=== PATIENT | female | born 1945 | race African-American/Black ===

== ENCOUNTER 2018-03-17 09:07 | Day surgery (SDC) | END 2018-03-17 12:06 | disposition home or self-care (01) ==

== ENCOUNTER 2018-10-31 05:28 | Day surgery (SDC) | payer MEDICARE, OTHER ==
[2018-10-31] VITALS (7 sets, daily range): BP systolic 108–154; BP diastolic 68–86; PULSE 80–93; RESP 13–21; Ht 160 cm; Wt 53.3 kg
[~2018-10-31] VITALS: Ht 160 cm; Wt 53.3 kg
[~2018-10-31 05:28] MED LIST: ASPI1CPM8 PO; ATOR10TA65 PO; GABA100C14 PO; METO-429 PO; SEVE800T7 PO
[2018-10-31] MEDS ORDERED: THROMBIN 5000 UNIT VIAL ONE (06:31)
[2018-10-31] MEDS ORDERED: HEPARIN 1000 UNITS/ML 10 ML INJ ONE ×2 (06:31→09:55)
[2018-10-31] MEDS ORDERED: GELATIN SIZE 100 SPONGE ONE (06:31)
[2018-10-31] MEDS ORDERED: LIDOCAINE 1% (MPF) 30 ML INJ ONE (06:31)
--- NOTE | 2018-10-31 07:13 | HPN ---
Date/Time of Note Date/Time of Note DATE: 10/31/18 TIME: 07:12 Interval H&P Admission Note Pt. seen H&P reviewed: No system changes ISAK JOSHUA MD Oct 31, 2018 07:12
[2018-10-31] MEDS ORDERED: HEPARIN 1000 UNITS/ML 10 ML INJ IRR ONE (08:00)
[2018-10-31] MEDS ORDERED: LIDOCAINE 1% (MDV) 20 ML INJ INJ ONE (08:00)
--- NOTE | 2018-10-31 08:05 | PREAC ---
Date/Time of Note Date/Time of Note DATE: 10/31/18 TIME: 08:04 Anesthesia Eval and Record Evaluation Time Pre-Procedure Interview DATE: 10/31/18 TIME: 08:04 Age 73 Sex female NPO: 8 hrs Preoperative diagnosis av fistula creation for esrd Planned procedure av fistula creation Past Medical History Past Medical History: Includes Cardio: HTN Neuro: CVA Renal: ESRD on dialysis Surgery & Anesthesia Issues No known issue Meds Anticoagulation: No Beta Francis within 24 hr: Yes Reported Medications Sevelamer Carbonate* (Renvela*) 800 Mg Tablet, 0.8 GM PO WITH MEALS, TAB 03/17/18 Aspirin-Dipyridamole* (Aggrenox*) 25-200 Mg Cpmp.12hr, 1 CAP PO BID, CAP 03/17/18 Atorvastatin Calcium (Atorvastatin Calcium) 10 Mg Tablet, 10 MG PO QHS, #30 TAB 03/17/18 Gabapentin* (Gabapentin*) 100 Mg Capsule, 100 MG PO BID, #90 CAP 03/17/18 Metoprolol Tartrate* (Lopressor*) 50 Mg Tab, 50 MG PO BID, #60 TAB 03/17/18 Meds reviewed: Yes Allergies Coded Allergies: morphine (Verified Allergy, Unknown, RASH ITCHY, 03/17/18) Allergies Reviewed: Yes Labs/Studies Labs Reviewed: Reviewed by anesthesiologist Result Diagram: 10/31/1827 10/31/18 0626 Laboratory Tests 10/31/18 06:26 10/31/18 06:27 test: N/A Pre-procedure Exam Airway: Adequate mouth opening, Adequate thyromental dist Mallampati: Mallampati IV Teeth: Normal Lung: Normal Heart: Normal ASA Physical Status ASA physical status: 4 Emergency: None Pre-operative Attestations Prior to commencing anesthesia and surgery, the patient was re-evaluated, there was verification of: *The patient's identity *The results of appropriate recent lab work and preoperative vital signs *The above evaluation not changing prior to induction *Anesthetic plan, risk benefits, alternative and complications discussed with patient/family; questions answered; patient/family understands, accepts and wishes to proceed. REBECCA CAVAZOS DO Oct 31, 2018 08:05
[2018-10-31] MEDS ORDERED: LIDOCAINE 2% (SDV) 5 ML INJ ONE (08:07)
[2018-10-31] MEDS ORDERED: ROPIVACAINE 0.5 % 30 ML VIAL ONE (08:07)
[2018-10-31] MEDS ORDERED: CEFAZOLIN 1 GM INJ ONE (08:33)
[2018-10-31] MEDS ORDERED: METOPROLOL 5 MG INJ ONE (10:13)
--- NOTE | 2018-10-31 10:22 | SIPON ---
Date/Time of Note Date/Time of Note DATE: 10/31/18 TIME: 10:21 Operative Report Preoperative Diagnosis ESRD Postoperative Diagnosis same Operation/Procedure Performed creation right arm AV graft, right femoral permacath exchange Surgeon see signature line veterinary assistant none Anesthesia: general Estimated blood loss: 10 - 50 ml's Transfusion Required none Specimen none Grafts/Implants none Complications none ISAK JOSHUA MD Oct 31, 2018 10:22
--- NOTE | 2018-10-31 10:27 | NUR ---
RECEIVED FROM OR VIA [facility] S/P RT. AV FISTULA CREATION AND REPLACEMENT PERMACATH RT. GROIN. DRESSING TO RT. ARM DRY AND INTACT. PERMACATH DRESSING DRY AND INTACT. IV INFUSINGH IN LT. HAND # 22 ANGIOCATH. BRUIT AND THRILL PRESENT .
[2018-10-31] MEDS ORDERED: ONDANSETRON 4 MG INJ IV PRN (10:30)
[2018-10-31] MEDS ORDERED: FENTAnyl 50 MCG/ML VIAL IV PRN (10:30)
[2018-10-31] MEDS ORDERED: LABETALOL HCL 20MG INJ IV PRN (10:30)
[2018-10-31] MEDS ORDERED: hydrALAzine 20 MG INJ IV PRN (10:30)
--- NOTE | 2018-10-31 10:34 | PAC ---
Date/Time of Note Date/Time of Note DATE: 10/31/18 TIME: 10:25 Post-Anesthesia Notes Post-Anesthesia Note Last documented vital signs 120/65 100 100% 18 98 1034 Activity: WNL Respiratory function: WNL Cardiovascular function: WNL Mental status: Baseline Pain reasonably controlled: Yes Hydration appropriate: Yes Nausea/Vomiting absent: Yes REBECCA CAVAZOS DO Oct 31, 2018 10:34
--- NOTE | 2018-10-31 11:50 | NUR ---
RE: DISCHARGE PATIENT DISCHARGED HOME. ALL DISCHARGE INSTRUCTIONS EXPLAINED AND PROVIDED TO PATIENT AND FAMILY. IV REMOVED. SURGICAL SITE CLEAN AND DRY WITHOUT ANY COMPLICATIONS. PATIENT VERBALIZED READINESS FOR DISCHARGE AND UNDERSTANDING OF INSTRUCTIONS PROVIDED. STABLE TO LEAVE THE HOSPITAL.
--- NOTE | 2018-10-31 12:00 | NUR ---
REPORT GIVEN TO [facility] CALLED AND NOTIFIED RE- TRANSFER TO [facility]. TRANSPORTED TO [facility] AT 1112 HRS. IN STABLE CONDITION. DRESSING TO RT. ARM REMAINS DRY AND INTACT. PERMACATH TO RT. GROIN INTACT. DR. CAVAZOS IN TO FURTHER EXPLAIN RE- BLOCK DONE ON RT. ARM. BRUIT AND THRILL PRESENT. IV REMAIN PATENT.
--- NOTE | 2018-11-01 10:31 | OPR ---
DATE OF OPERATION: 10/31/2018 PREOPERATIVE DIAGNOSIS: End-stage renal disease. POSTOPERATIVE DIAGNOSIS: End-stage renal disease. PROCEDURE PERFORMED: Creation of right arm AV graft and exchange of right femoral Perm-A-Cath. SURGEON: Isak Carrizales MD ANESTHESIA: Regional block plus LMA. ESTIMATED BLOOD LOSS: 50 mL. COMPLICATIONS: There were no intraprocedural complications. INDICATIONS: This is a 73-year-old woman. She has had multiple arm accesses bilaterally. She has m ost recently a right upper arm basilic transposition that is now occluded. She has a right femoral P erm-A-Cath. She was brought in today for creation of a right upper arm AV graft. When I saw her thi s morning they also told me the femoral Perm-A-Cath clotted yesterday and they have not been able to use it, so I exchanged the femoral Perm-A-Cath as well. DESCRIPTION OF PROCEDURE: Patient was brought to the operating room and placed on the table in supin e position. After the block and anesthesia were induced, the right arm was prepped and draped in the usual sterile fashion. I had marked it on the skin. The brachial artery just above the elbow and t he axillary vein in the upper arm using ultrasound guidance. I then made an incision over both of th dennis areas longitudinally. She had a previous basilic transposition. There is a lot of scarring, but I was able to dissect out the brachial artery just above the elbow. It is a little bit small, but h ealthy and patent and then the axillary vein in the upper arm, I dissected down through the subcutane ous tissue using electrocautery, carefully dissected out the axillary vein and it from the axillary artery. I then used a Estrella-Wick tunneler to tunnel a 6 mm Artegraft between the 2 incision s in a curvilinear fashion going out up over the biceps. I then clamped the axillary vein proximally and distally, made about 1.5 cm long venotomy, spatulated the upper end of graft to fit the venotomy and then anastomosed the upper end of the graft to the side of the vein using 6-0 Prolene suture in a running standard vascular surgical fashion. I removed the clamps. I flushed the graft. It flushe d easily. There was no resistance. I then clamped the graft, then clamped the brachial artery proxi savanah and distally, made an 8 mm long anterior arteriotomy. I just cut the graft flush to fit the ar teriotomy, then anastomosed the lower end of the graft to the side of the brachial artery using 6-0 P rolene suture in a running standard vascular surgical fashion. I removed the clamps. There was a go od thrill. There was good hemostasis. I closed the skin incisions in 2 layers using an inner layer of 3-0 Vicryl and an outer layer of 4-0 Monocryl subcuticular suture. Sterile dressing was applied. I then prepped and draped the right groin. I re-draped after putting on some , I then exchange d the right femoral Perm-A-Cath. I placed a J-wire through the catheter after the groin was prepped and draped. I then removed the previous catheter over the wire. I then placed a 50 cm 5 cm femoral Perm-A-Cath over the wire under fluoroscopic guidance and identified the tip of the catheter in the r ight atrium. I was happy with the positioning. I then anchored the catheter to skin using heavy 3-0 nylon suture. I infused 3.1 mL of 1000 unit per mL heparin into each port of the catheter. Caps we re applied. Sterile dressing was applied. The patient was then transferred to the recovery room in stable condition, she tolerated the procedur e well without any complications. Dictated By: ISAK LINARES/MARIE Conf#: [id number] DID#: [id number]
--- NOTE | 2018-11-03 13:46 | RADRPT ---
Vent Rate: 83 bpm RR Interval: 0 msec AR Interval: 186 msec QRS Duration: 74 msec QT Interval: 398 msec QTC Interval: 467 msec P-R-T [place]: 54 - -28 - 87 degrees Normal sinus rhythm Minimal voltage criteria for LVH, may be normal variant Borderline ECG Electronically Signed By: Shen Garcia [id number]
== END 2018-10-31 17:19 | disposition home or self-care (01) ==
LOC: SDS 05:28
PROVIDERS: ATTEND Surgery Vascular Surgery
DX: I12.0 Hypertensive chronic kidney disease with stage 5 chronic kidney disease or end stage renal disease (principal); N18.6 End stage renal disease; Z86.73 Personal history of transient ischemic attack (TIA), and cerebral infarction without residual deficits
CPT/HCPCS: 36821; 71045; 74018; 80053; 85025; 85610; 85730; 93005; C1752; C1768; J0690; J1644; J2795

== ENCOUNTER 2018-12-01 08:08 | Day surgery (SDC) | payer MEDICARE, OTHER ==
[~2018-12-01] VITALS: Ht 160 cm; Wt 51.0 kg
[2018-12-01] MEDS ORDERED: GABA100C14 PO (09:02)
[2018-12-01] MEDS ORDERED: ATOR10TA65 PO (09:02)
[2018-12-01] MEDS ORDERED: METO-429 PO (09:03)
[2018-12-01] MEDS ORDERED: NEPH PO (09:03)
[2018-12-01] MEDS ORDERED: SEVE800T7 PO (09:04)
[2018-12-01 09:34] VITALS: Ht 160 cm; Wt 51.0 kg
[2018-12-01 09:44] VITALS: BP 132/58; PULSE 88; RESP 18
[2018-12-01] MEDS ORDERED: FENTAnyl 50 MCG/ML VIAL ONE (11:31)
[2018-12-01 12:27] VITALS: BP 134/67; PULSE 91; RESP 18
[2018-12-01] MEDS ORDERED: ACETAMINOPHEN 325 MG TAB PO ONE (14:30)
--- NOTE | 2018-12-01 16:05 | OPR ---
DATE OF OPERATION: 12/01/2018 PREOPERATIVE DIAGNOSIS: Right arm edema and arteriovenous fistula. POSTOPERATIVE DIAGNOSIS: Right arm edema and arteriovenous fistula. PROCEDURE PERFORMED: 1. Right arm arteriovenous fistulogram. 2. Percutaneous venoplasty of the venous anastomosis. 3. Percutaneous venoplasty of the right axillary vein. SURGEON: Isak Carrizales MD ANESTHESIA: Local with sedation. ESTIMATED BLOOD LOSS: Minimal. COMPLICATIONS: No intraprocedural complications. INDICATIONS: A 73-year-old woman with diabetes, hypertension, end-stage renal disease on dialysis fo r many years. She has multiple failed accesses in the left arm. She has a recently placed right arm AV graft, but though actually functionally patent, she has a lot of arm swelling, so I brought her i n today for a fistulogram and possible intervention. DESCRIPTION OF PROCEDURE: The patient was brought to the home performance laborer, placed on the table in the supine position. Right arm was prepped and draped in the usual sterile fashion. I began by infiltrating o maggie the AV graft just above the arterial anastomosis at the elbow with about 5 mL of 1% Xylocaine usi ng micropuncture needle to enter the graft under manual guidance. An 0.018 wire was inserted through the needle. The micropuncture sheath was advanced over the wire and into the graft. I then did an AV fistulogram . This identified the arterial anastomosis is patent. The graft itself is widely patent. The venou s anastomosis has about a 70% stenosis and there is a lot of retrograde flow going back down toward t he forearm. The axillary vein going up higher was patent and then up in the axillary vein, the upper arm in the shoulder region has a severe stenosis in the 90% range. The central veins more proximall y are patent. I decided to treat both the areas of stenosis. I advanced the Glidewire through the m icropuncture sheath and advanced it into the superior vena cava. I then exchanged the micropuncture sheath for a 6-Portuguese sheath over the wire. I then angioplastied the axillary vein up by the adrian lam with a 7 x 100 balloon to 20 atmospheres. There is still a waist, but is basically about a 20% res idual stenosis. I then angioplastied the venous anastomosis with no residual stenosis. Again, I use d a 700/100 balloon to about 14 atmospheres. No residual stenosis. There was a good thrill in the f istula. I was happy with the result. I removed the catheter sheaths and wires, put a 4-0 Monocryl p ursestring suture on the puncture site. Sterile dressing was applied. The patient was transferred t o recovery in stable condition. She can be discharged home. She can follow up in the office in 2 da ys to remove the suture. Dictated By: ISAK LINARES/MARIE Conf#: [id number] DID#: [id number]
== END 2018-12-01 14:21 | disposition home or self-care (01) ==
LOC: SDS 08:08
PROVIDERS: ATTEND Surgery Vascular Surgery
DX: T82.898A Other specified complication of vascular prosthetic devices, implants and grafts, initial encounter (principal); Y83.8 Other surgical procedures as the cause of abnormal reaction of the patient, or of later complication, without mention of misadventure at the time of the procedure; I12.0 Hypertensive chronic kidney disease with stage 5 chronic kidney disease or end stage renal disease; N18.6 End stage renal disease
CPT/HCPCS: 36902; 84132; C1725; C1894; J3010